=== PATIENT | female | born 1985 | race Caucasian/White ===

== ENCOUNTER → 2016-11-07 | Outpatient (CLI) | payer BC ==
[~2016-11-07] MED LIST: LETR2TAB PO
== END | disposition home or self-care (01) ==
LOC: C.PAPS 16:19
PROVIDERS: ATTEND Obstetrics & Gynecology
DX: Z01.419 Encounter for gynecological examination (general) (routine) without abnormal findings (principal); Z87.42 Personal history of other diseases of the female genital tract

== ENCOUNTER → 2016-12-20 | Outpatient (CLI) | payer BC ==
[2016-12-20 10:01] LABS: PROLACTIN 8.85 ng/mL
== END | disposition home or self-care (01) ==
LOC: C.LAB 08:25
PROVIDERS: ATTEND Obstetrics & Gynecology
DX: Z31.41 Encounter for fertility testing (principal)

== ENCOUNTER → 2016-12-27 | Outpatient (CLI) | payer BC ==
--- NOTE | 2016-12-27 11:32 | DIAGNOSTIC IMAGING REPORT ---
HYSTEROSALPINGOGRAM HISTORY: Infertility. FLUOROSCOPY TIME: 0.6 minutes. TECHNIQUE: The cervix was cannulated by the oxygen equipment preparer-electronics technician and water soluble contrast was instilled into the uterus under fluoroscopic guidance. Multiple spot images were obtained. FINDINGS: The uterine cavity is normal in size, shape, and position. The fallopian tubes are patent and there is free peritoneal spill on the right. There appears to be a small peritubal adhesion at the left fallopian tube without free intraperitoneal spill.. IMPRESSION: Normal uterus and right ovary. There appears to be a small peritubal adhesion at the left fallopian tube without free intraperitoneal spill. Electronically signed by: Benjamin Skelton M.D. 12/27/2016 11:31 AM Dictated Date/Time: 12/27/2016 11:30 AM
--- NOTE | 2016-12-27 11:57 | OPERATIVE REPORT ---
DATE OF OPERATION: 12/27/2016 PROCEDURE NOTE DATE OF PROCEDURE: 12/27/2016. PROCEDURE PERFORMED: Hysterosalpingogram. SURGEON: Dr. Dowd. FINDINGS: Injection of radiopaque dye showed fill of the uterine cavity and bilateral fill and spill. Left fallopian tube deviated towards the pelvic sidewall, possibly consistent with adhesions. PROCEDURE IN DETAIL: In the fluoroscopy suite, the patient was placed in the dorsal lithotomy position. Cervix visualized, cleansed with Betadine and an HSG cannula inserted into the cervical os and fastened to the tenaculum. Radiopaque dye is injected into the uterine cavity with the description as above. The patient tolerated the procedure well. Instrumentation removed. The patient taken out of dorsal lithotomy. I attest to the content of the Intraoperative Record and any orders documented therein. Any exceptio ns are noted below.
== END | disposition home or self-care (01) ==
LOC: C.RAD 10:55
PROVIDERS: ATTEND Obstetrics & Gynecology
DX: Z31.41 Encounter for fertility testing (principal)

== ENCOUNTER 2017-06-21 17:26 | Emergency (ER) | payer BC ==
[~2017-06-21] VITALS: Ht 180.3 cm; Wt 66.8 kg
[2017-06-21 17:28] VITALS: Ht 180.3 cm; Wt 66.8 kg
--- NOTE | 2017-06-21 17:58 | EMERGENCY ROOM VISIT NOTE ---
History First contact with patient: 17:34 Chief Complaint: ABNORMAL DIAGNOSTIC TESTING Stated Complaint: ABN EKG, POSSIBLE SEPTIC INFARCT- [facility] REF History of Present Illness The patient is a 31 year old female who presents to the Emergency Room with complaints of left upper quadrant/left rib pain for the past 2 weeks. She states the pain has been progressively worsening. She states it is not severe, but is a nagging and annoying pain. She rates her discomfort a 3/10. She states that last night, the pain began to radiate down her left arm. She became very anxious regarding this and took her blood pressure, which was elevated. She states that today, she has a cramping sensation in her left arm and aching, "empty" feeling in the left side of her chest. She was seen at [facility] and full she had an abnormal EKG and was sent here for further evaluation. She denies any shortness of breath, changes in bowel movements, nausea or vomiting. She denies any cardiac history or history of blood clots. The patient is currently on hormone therapy for infertility. She states that she is a smoker, but has not smoked for the past 2 days. She denies any recent travel. Review of Systems A complete 10 point review of systems was reviewed with the patient with pertinent positives and negatives as per history of present illness. All else were negative. Social History Smoking Status: Current Some Day Smoker Current/Historical Medications Scheduled Letrozole (Femara), 2.5 MG PO UD Physical Exam Vital Signs Date Time Temp Pulse Resp B/P (MAP) Pulse Ox O2 Delivery O2 Flow Rate FiO2 06/21/17 20:07 36.8 70 18 101/73 97 Room Air 06/21/17 18:52 71 18 112/77 97 06/21/17 17:28 36.6 83 18 130/84 96 Room Air Physical Exam VITALS: Vitals are noted on the nurse's note and reviewed by myself. Vital signs stable. GENERAL: This is a 31-year-old female, anxious appearing, nondiaphoretic, well- developed well-nourished. SKIN: No rashes noted. HEENT: Normocephalic. PERRLA. EOMI. Nares patent. Mucous membranes moist. HEART: Regular rate and rhythm without murmurs gallops or rubs. LUNGS: Clear to auscultation bilaterally without wheezes, rales or rhonchi. No retractions or accessory muscle use. ABDOMEN: Positive bowel sounds x 4. Soft, nontender to palpation. NEURO: Patient was alert and oriented to person place and time. Normal sensation to light and sharp touch. Medical Decision & Procedures ER Provider Diagnostic Interpretation: CHEST ONE VIEW PORTABLE CLINICAL HISTORY: Left sided chest pain. COMPARISON STUDY: Chest CT April 10, 2009. FINDINGS: Lung volumes are normal. There is no pneumothorax or pleural effusion. Pulmonary vascularity is normal. Lungs are clear. Cardiomediastinal silhouette is normal. A nipple shadow projects over the right lower lung. IMPRESSION: No acute cardiopulmonary findings. Laboratory Results 06/21/17 18:15 Red Blood Count 4.57, Mean Corpuscular Volume 89.1, Mean Corpuscular Hemoglobin 30.4, Mean Corpuscular Hemoglobin Concent 34.2, Mean Platelet Volume 9.4, Neutrophils (%) (Auto) 52.8, Lymphocytes (%) (Auto) 40.7, Monocytes (%) (Auto) 5.3, Eosinophils (%) (Auto) 1.0, Basophils (%) (Auto) 0.2, Neutrophils # (Auto) 2.59, Lymphocytes # (Auto) 2.00, Monocytes # (Auto) 0.26, Eosinophils # (Auto) 0.05, Basophils # (Auto) 0.01 06/21/17 18:15 Test 06/21/17 17:55 06/21/17 18:15 06/21/17 18:22 Urine Color DK YELLOW Urine Appearance CLEAR (CLEAR) Urine pH 6.0 (4.5-7.5) Urine Specific [place] 1.029 (1.000-1.030) Urine Protein NEG (NEG) Urine Glucose (UA) NEG (NEG) Urine Ketones NEG (NEG) Urine Occult Blood 1+ (NEG) Urine Nitrite NEG (NEG) Urine Bilirubin NEG (NEG) Urine Urobilinogen NEG (NEG) Urine Leukocyte Esterase NEG (NEG) Urine WBC (Auto) 1-5 /hpf (0-5) Urine RBC (Auto) 10-30 /hpf (0-4) Urine Hyaline Casts (Auto) 5-10 /lpf (0-5) Urine Epithelial Cells (Auto) >30 /lpf (0-5) Urine Bacteria (Auto) NEG (NEG) Urine Test NEG (NEG) White Blood Count 4.91 K/uL (4.8-10.8) Red Blood Count 4.57 M/uL (4.2-5.4) Hemoglobin 13.9 g/dL (12.0-16.0) Hematocrit 40.7 % (37-47) Mean Corpuscular Volume 89.1 fL (80-100) Mean Corpuscular Hemoglobin 30.4 pg (25-34) Mean Corpuscular Hemoglobin Concent 34.2 g/dl (32-36) Platelet Count 200 K/uL (130-400) Mean Platelet Volume 9.4 fL (7.4-10.4) Neutrophils (%) (Auto) 52.8 % Lymphocytes (%) (Auto) 40.7 % Monocytes (%) (Auto) 5.3 % Eosinophils (%) (Auto) 1.0 % Basophils (%) (Auto) 0.2 % Neutrophils # (Auto) 2.59 K/uL (1.4-6.5) Lymphocytes # (Auto) 2.00 K/uL (1.2-3.4) Monocytes # (Auto) 0.26 K/uL (0.11-0.59) Eosinophils # (Auto) 0.05 K/uL (0-0.5) Basophils # (Auto) 0.01 K/uL (0-0.2) RDW Standard Deviation 38.6 fL (36.4-46.3) RDW Coefficient of Variation 12.0 % (11.5-14.5) Immature Granulocyte % (Auto) 0.0 % Immature Granulocyte # (Auto) 0.00 K/uL (0.00-0.02) Anion Gap 6.0 mmol/L (3-11) Est Creatinine Clear Calc Drug Dose 120.0 ml/min Estimated GFR () 130.6 Estimated GFR (Non- 112.7 BUN/Creatinine Ratio 27.0 (10-20) Calcium Level 9.2 mg/dl (8.5-10.1) Total Bilirubin 0.4 mg/dl (0.2-1) Aspartate Amino Transf (AST/SGOT) 9 U/L (15-37) Alanine Aminotransferase (ALT/SGPT) 18 U/L (12-78) Alkaline Phosphatase 50 U/L (45-117) Total Protein 7.4 gm/dl (6.4-8.2) Albumin 4.2 gm/dl (3.4-5.0) Globulin 3.2 gm/dl (2.5-4.0) Albumin/Globulin Ratio 1.3 (0.9-2) Lipase 85 U/L (73-393) Bedside D-Dimer 103 ng/mlFEU (0-450) Bedside Troponin I < 0.030 ng/ml (0-0.045) ECG Rate (beats per minute): 64 Rhythm: normal sinus Findings: no acute ischemic change, no ectopy Comparison ECG Date: no prior available Medical Decision Differential diagnosis includes acute coronary syndrome, pulmonary embolism, pneumothorax, pericarditis, myocarditis, endocarditis, anxiety, musculoskeletal pain, GERD, costochondritis, pneumonia, among others. The patient is a 31-year-old female who presents today complaining of left upper quadrant pain and abnormal EKG per [facility]. EKG here shows a normal sinus rhythm at a rate of 64 bpm. There is no evidence of ischemia. I did review the EKG from [facility], which was read to show a possible septal infarct. On further review, I do not feel there are Q waves present on that EKG either. Labs revealed no leukocytosis, anemia or concerning electrolyte abnormalities. Troponin was not elevated. D-dimer was not elevated. The patient has no abdominal tenderness on exam. She was encouraged to try a PPI at home for what is likely gastritis/GERD. Based on the patient's presentation and work up, I feel the patient is stable for outpatient treatment. The patient was educated to return to the emergency department for any worsening of their current condition or new/concerning symptoms. She will follow up with her PCP. Medication Reconcilliation Current Medication List: was personally reviewed by me Blood Pressure Screening Patient's blood pressure: Normal blood pressure Impression Primary Impression: Left upper quadrant pain Departure Information Dispostion Home / Self-Care Condition GOOD Referrals No Doctor, Assigned (PCP) Patient Instructions [facility] [employer] Additional Instructions You may begin Prilosec or Nexium [id number] for your symptoms. Schedule a follow-up appointment with a primary care provider preferably within 1 week to discuss today's visit. Return to the emergency department with any worsening pain, shortness of breath , vomiting, changes in bowel movements or any other new/concerning symptoms.
--- NOTE | 2017-06-21 18:10 | DIAGNOSTIC IMAGING REPORT ---
CHEST ONE VIEW PORTABLE CLINICAL HISTORY: Left sided chest pain. COMPARISON STUDY: Chest CT April 10, 2009. FINDINGS: Lung volumes are normal. There is no pneumothorax or pleural effusion. Pulmonary vascularity is normal. Lungs are clear. Cardiomediastinal silhouette is normal. A nipple shadow projects over the right lower lung. IMPRESSION: No acute cardiopulmonary findings. Electronically signed by: Luis Arana M.D. 06/21/2017 6:08 PM Dictated Date/Time: 06/21/2017 6:07 PM
[2017-06-21] MEDS ORDERED: LETR2TAB PO (18:11)
[2017-06-21 18:23] LABS: URINE APPEARANCE CLEAR (CLEAR); URINE BILIRUBIN NEG (NEG); URINE COLOR DK YELLOW; URINE EPITHELIAL CELL AUTO >30 /lpf (0-5); URINE NITRITE NEG (NEG); URINE SPECIFIC GRAVITY 1.029 (1.000-1.030); UROBILINOGEN NEG (NEG); ZZUR CULT IF INDIC CLEAN CATCH NO
[2017-06-21 18:33] LABS: MANUAL MICROSCOPIC REQUIRED? NO; REVIEW REQ? NO
[2017-06-21 18:41] LABS: POINT OF CARE TROPONIN I < 0.030 ng/ml (0-0.045)
[2017-06-21 18:44] LABS: BASO % 0.2 %; BASO ABS # 0.01 K/uL (0-0.2); COMPLETE YES; HEMATOCRIT 40.7 % (37-47); LYMPH % 40.7 %; MEAN CELL VOLUME 89.1 fL (80-100); MEAN CORPUSCULAR HEMOGLOBIN 30.4 pg (25-34); MEAN CORPUSCULAR HGB CONC 34.2 g/dl (32-36); MEAN PLATELET VOLUME 9.4 fL (7.4-10.4); MONO % 5.3 %; NEUT % 52.8 %; PLATELET COUNT 200 K/uL (130-400); RED BLOOD COUNT 4.57 M/uL (4.2-5.4); WHITE BLOOD COUNT 4.91 K/uL (4.8-10.8)
[2017-06-21 19:12] LABS: CALCIUM 9.2 mg/dl (8.5-10.1); CREATININE 0.71 mg/dl (0.60-1.20); POTASSIUM 3.3 mmol/L (3.5-5.1)
[2017-06-21 19:15] LABS: ALB/GLOB RATIO 1.3 (0.9-2)
[2017-06-21 20:07] VITALS: BP 101/73; PULSE 70; TEMP 36.8; O2SAT 97
== END 2017-06-21 20:08 | disposition home or self-care (01) ==
LOC: C.EDB 17:27 → C.EDA 20:08
DX: R10.12 Left upper quadrant pain (principal); F17.210 Nicotine dependence, cigarettes, uncomplicated; Z79.899 Other long term (current) drug therapy

== ENCOUNTER → 2017-06-28 | Outpatient (CLI) | payer BC ==
[~2017-06-28] MED LIST changes: +OPTIRAY 320 IV PRN
--- NOTE | 2017-06-28 16:44 | DIAGNOSTIC IMAGING REPORT ---
(CHEST FOR PE) ANGIO WITH CT DOSE: 356.84 mGycm HISTORY: Chest pain dyspnea TECHNIQUE: Multiaxial CT images of the chest were performed following the intravenous administration of contrast to evaluate the pulmonary arteries. Maximal intensity projection images were also obtained. A dose lowering technique was utilized adhering to the principles of ALARA. COMPARISON STUDY: None. FINDINGS: There is a normal caliber thoracic aorta with no evidence for dissection. There is no evidence for pulmonary embolus. No pleural effusions. No pneumothorax. The liver and spleen are unremarkable. No mediastinal or hilar lymphadenopathy. The central airways are patent. The lungs are clear. IMPRESSION: No evidence for pulmonary embolus. The lungs are clear. The above report was generated using voice recognition software. It may contain grammatical, syntax or spelling errors. Electronically signed by: Rivas Osborn M.D. 06/28/2017 4:43 PM Dictated Date/Time: 06/28/2017 4:40 PM
== END | disposition home or self-care (01) ==
LOC: C.CTS 16:17
PROVIDERS: ATTEND Nurse Practitioner Adult Health
DX: R10.812 Left upper quadrant abdominal tenderness (principal); M79.603 Pain in arm, unspecified; R07.9 Chest pain, unspecified

== ENCOUNTER → 2017-06-28 | Outpatient (CLI) | payer BC ==
[~2017-06-28] MED LIST changes: -OPTIRAY 320 IV PRN
[2017-06-28 18:00] LABS: URINE APPEARANCE CLEAR (CLEAR); URINE BILIRUBIN NEG (NEG); URINE COLOR YELLOW; URINE EPITHELIAL CELL AUTO 20-30 /lpf (0-5); URINE NITRITE NEG (NEG); URINE PH 7.5 (4.5-7.5); URINE SPECIFIC GRAVITY 1.022 (1.000-1.030); UROBILINOGEN NEG (NEG)
[2017-06-28 18:04] LABS: MANUAL MICROSCOPIC REQUIRED? NO; REVIEW REQ? NO
== END | disposition home or self-care (01) ==
LOC: C.LABSPEC 17:13
PROVIDERS: ATTEND Nurse Practitioner Adult Health
DX: R31.29 Other microscopic hematuria (principal)

== ENCOUNTER → 2017-08-07 | Outpatient (CLI) | payer BC ==
--- NOTE | 2017-08-07 08:54 | DIAGNOSTIC IMAGING REPORT ---
ABDOMEN COMPLETE (US) CLINICAL HISTORY: ABD TENDERNESS COMPARISON STUDY: No previous studies for comparison. FINDINGS: The liver appears sonographically normal. The gallbladder appears sonographically normal. The pancreas appears sonographically normal. There is no ductal dilatation. Common bile duct measures 4 mm. The spleen measures 11 cm in length. No splenic masses were evident. The right kidney measured 8.9 cm in length. Left kidney measured 9.5 cm in length. No renal masses are visualized. There is no hydronephrosis. There is no evidence of abdominal aortic dilatation. No IVC abnormalities were visualized. IMPRESSION: Normal study Electronically signed by: Bg Kaur M.D. 08/07/2017 8:52 AM Dictated Date/Time: 08/07/2017 8:51 AM
== END | disposition home or self-care (01) ==
LOC: C.ULTRBC 08:01
PROVIDERS: ATTEND Nurse Practitioner Adult Health
DX: Z00.00 Encounter for general adult medical examination without abnormal findings (principal); R10.812 Left upper quadrant abdominal tenderness

== ENCOUNTER → 2017-08-09 | Outpatient (CLI) | payer BC | END | disposition home or self-care (01) | LOC: C.LABSPEC 17:50 → C.PATHSPEC 17:51 | PROVIDERS: ATTEND Urology | DX: R31.29 Other microscopic hematuria (principal) ==

== ENCOUNTER → 2017-11-17 | Day surgery (SDC) | payer BC ==
[2017-09-22 15:19] VITALS: BMI 22.0
[2017-11-08 09:50] VITALS: BMI 22.0
[2017-11-08 10:17] LABS: BASO % 0.3 %; BASO ABS # 0.01 K/uL (0-0.2); EOS ABS # 0.07 K/uL (0-0.5); HEMATOCRIT 43.3 % (37-47); HEMOGLOBIN 14.9 g/dL (12.0-16.0); LYMPH % 44.9 %; LYMPH ABS # 1.57 K/uL (1.2-3.4); MEAN CELL VOLUME 87.5 fL (80-100); MEAN CORPUSCULAR HEMOGLOBIN 30.1 pg (25-34); MEAN CORPUSCULAR HGB CONC 34.4 g/dl (32-36); MEAN PLATELET VOLUME 8.8 fL (7.4-10.4); MONO % 10.6 %; MONO ABS # 0.37 K/uL (0.11-0.59); NEUT % 42.2 %; NEUT ABS # 1.48 K/uL (1.4-6.5); PLATELET COUNT 214 K/uL (130-400); RED CELL DISTRIBUTION WIDTH CV 11.9 % (11.5-14.5); RED CELL DISTRIBUTION WIDTH SD 37.7 fL (36.4-46.3)
--- NOTE | 2017-11-08 10:33 | PAT Medication Instructions ---
Service Date Nov 08, 2017. Current Home Medication List Multivitamin (Multivitamin), 1 TAB PO DAILY Medication Instructions For Your Scheduled Surgery - Take the following medications as scheduled the afternoon before surgery: Multivitamin (Multivitamin), 1 TAB PO DAILY If you have any questions please call us at [phone] or [phone] or [phone]
[2017-11-08 10:57] LABS: CALCIUM 9.4 mg/dl (8.5-10.1); CREATININE 0.91 mg/dl (0.60-1.20); POTASSIUM 4.2 mmol/L (3.5-5.1)
[~2017-11-17] VITALS: Ht 180.3 cm; Wt 74.0 kg
[~2017-11-17] MED LIST changes: +ATROPINE SULFATE 0.1 MG/ML 5ML SYR IV PRN; +BUPIVACAINE 0.5 % 5 MG/1 ML MPF 30ML VIAL ONE; +CEFTRIAXONE SOD 1 GM VIAL ONE; +DEXAMETHASONE SOD INJ 4 MG/ML VIAL ONE; +DOXY100C41 PO; +EpHEDrine SULFATE INJ 50 MG/ML AMP IV PRN; +EpHEDrine SULFATE INJ 50 MG/ML AMP ONE; +FENTANYL CITRATE INJ 50 MCG/1 ML 2 ML VIAL ONE; +GLYCOPYRROLATE INJ 0.2 MG/ML VIAL ONE; +HYDROmorphone INJ 0.5 MG/0.5 ML SYR IV PRN; +HYDROmorphone INJ 2 MG/ML SYR/VIAL ONE; +IBUPROFEN 600 MG TAB PO PRN; +KETOROLAC TROMETHAMINE 30 MG/ML VIAL IV. PRN; +KETOROLAC TROMETHAMINE 30 MG/ML VIAL ONE; +LACTATED RINGER'S 1000ML 1,000 ML IV SCH; -LETR2TAB PO; +LIDOCAINE HCL 2% 2 ML VIAL (20MG/ML) ONE; +MIDAZOLAM HCL 1 MG/ML 2ML VIAL ONE; +MTR600X PO; +MULT-506 PO; +NEOSTIGMINE METHYLSULFATE 5 MG/5 ML SYR ONE; +ONDANSETRON INJ 2 MG/ML 2 ML VIAL IV PRN; +ONDANSETRON INJ 2 MG/ML 2 ML VIAL ONE; +OXYC-57 PO; +OXYCODONE/ACETAMINOPHEN 5-325 TAB PO PRN; +PHENYLEPHRINE HCL INJ 10 MG/ML VIAL ONE; +PROMETHAZINE HCL INJ 25 MG in SODIUM CHLORIDE 0.9% 50ML 50 ML IV PRN; +PROPOFOL IV EMULSION 10 MG/ML 20 ML VIAL IV ONE; +ROCURONIUM BROMIDE 10 MG/ML 5 ML VIAL IV ONE; +SODIUM CHLORIDE 0.9% 1000ML 1,000 ML IV SCH; +SUCCINYLCHOLINE CHLORIDE 20 MG/ML 10 ML VIAL IV ONE
[2017-11-17 07:51] VITALS: BP 121/83; PULSE 73; TEMP 36.7; O2SAT 99; Ht 180.3 cm; Wt 74.0 kg
[2017-11-17] MEDS: LACTATED RINGER'S 1000ML 1,000 ML IV SCH ×2 (08:24→11:53)
--- NOTE | 2017-11-17 09:26 | History & Physical Bridge Note ---
H&P Re-Evaluation Bridge Note: I have examined the patient, reviewed the History & Physical and in the interval since the performance of the History & Physical I have noted the following changes of clinical significance: No changes noted
--- NOTE | 2017-11-17 11:21 | [facility] Post Operative Brief Note ---
Immediate Operative Summary Operative Date Nov 17, 2017. Pre-Operative Diagnosis Dysmenorrhea Post-Operative Diagnosis dysmenorrhea, endometriosis, Óscar-Bob Ella syndrome Procedure(s) Performed Diagnostic Laparoscopy with lysis of adhesions Surgeon Dr. Echevarria Civil Manager Surgeon(s) none Estimated Blood Loss 5 cc Findings Consistent with Post-Op Diagnosis Specimens none, as per surgeon Drains None Anesthesia Type General Complication(s) none Disposition Accompanied Pt To Recover: no Disposition: Recovery Room / PACU
--- NOTE | 2017-11-17 11:22 | Discharge Instructions ---
Discharge Instructions Date of Service Nov 17, 2017. Admission Reason for Admission: Dysmenorrhea Discharge Discharge Diagnosis / Problem: pelvic pain Discharge Goals Goal(s): Routine recovery after surgery Activity Recommendations Activity Limitations: per Instructions/Follow-up section . Instructions / Follow-Up Instructions / Follow-Up ACTIVITY RECOMMENDATIONS: * Rest the first 2-3 days. You should be back to your normal activity levels by day 3. * No heavy lifting for 2 weeks. * No intercourse, tampons or douching for 1-2 weeks. * You may shower the next day. * Do not drive anytime that you are taking narcotic pain medicines. RETURN TO SCHOOL/WORK: * May return to school or work after 2-3 days. DIET: Nausea may occur in the immediate post-operative period. If so, take clear liquids such as tea, bouillon, apple juice until all nausea has subsided, then resume usual diet. MEDICATIONS: Resume previous medications unless instructed otherwise by your surgeon. Ibuprofen 200mg 2-3 tablets every 4-6 hours as needed -- OR -- Aleve 2 tablets every 8-12 hours as needed for post-operative discomfort Medications are over the counter. Tylenol may be used if above medications are contraindicated or not preferred. Medication should be taken with food or milk. Do not take on an empty stomach. SPECIAL CARE INSTRUCTIONS: * Check temperature twice daily for one week. report any elevation over 101 degrees. * You may experience some vagina spotting and/or bleeding. This is normal for 1 -2 weeks and should not be heavier than a normal period. If it is unusual in amount, call your physician. * Post-operative discomfort may consist of a sore throat, a "bloated" feeling and pain in the shoulders. these are normal symptoms, which usually only last for 2-3 days. * Remove band-aids tomorrow and shower. There is no need to replace band-aids unless there is drainage or discomfort. FOLLOW UP VISIT: Call your doctor's office for a post-operative 2 week visit if not already scheduled. Current Hospital Diet Patient's current hospital diet: Discharge Diet Recommended Diet: Regular Diet Procedures Procedures Performed: Diagnostic Laparoscopy with lysis of adhesions Pending Studies Studies pending at discharge: no Medical Emergencies . Who to Call and When: Medical Emergencies: If at any time you feel your situation is an emergency, please call 911 immediately. . Non-Emergent Contact Non-Emergency issues call your: Heavy Equipment Operator Apprentice . . "Provider Documentation" section prepared by Luigi Echevarria. .
[2017-11-17] MEDS: FENTANYL CITRATE INJ 50 MCG/1 ML 2 ML VIAL IV PRN ×4 (11:47→12:03)
--- NOTE | 2017-11-17 12:13 | OPERATIVE REPORT ---
DATE OF OPERATION: 11/17/2017 PREOPERATIVE DIAGNOSES: Dysmenorrhea, pelvic pain. POSTOPERATIVE DIAGNOSES: [id number]-Pmpowh syndrome, adhesions. PROCEDURE: Laparoscopy with lysis of adhesions. SURGEON: Luigi Echevarria MD INTENSIVE CARE UNIT NURSE: None. ESTIMATED BLOOD LOSS: 5 mL. FINDINGS: Consistent with postoperative diagnoses. SPECIMENS: None. DRAINS: None. ANESTHETIC: General. COMPLICATIONS: None. DISPOSITION: Recovery room. DESCRIPTION OF PROCEDURE: Vince was given general anesthetic, prepped and draped in dorsal lithotomy position in [facility]. The bladder was drained with a Butler catheter. A cervical acorn device attached the cervix, attached to an Allis clamp. Gloves were changed and a subumbilical incision was made with a scalpel cutting down through subcutaneous fat to the fascia in the midline, splitting the rectus muscles and entering the peritoneal cavity without difficulty. A blunt-tipped Charbel trocar was placed, balloon inflated to stabilize the port, CO2 gas used to insufflate the abdomen. FINDINGS: Upper abdomen revealed no sign of visceral organ injury. There were adhesions up over the liver, highly consistent with Amyh-Tswb-Tkwflt syndrome and as well there were adhesions on the right side of the fallopian tube to the omentum as well as flimsy adhesions to the round ligament on the right side. Pictures were taken for documentation. After obtaining deep Trendelenburg position, we placed two 8 mm ports on the left side of the patient under direct visualization. Using a nontraumatic grasper and the Harmonic scalpel, I was able to lyse the adhesions across the round ligament and around the right fallopian tube. We did not damage the right fallopian tube, although it should be noted the diameter of the right fallopian tube was somewhat enlarged. Possibly prior infection. We then also paid attention to the flimsy adhesions up above the liver. These were carefully lysed using the Harmonic scalpel, we were nowhere near contacting the liver and once the adhesions were lysed, pictures were taken for documentation. We did do a low carbon dioxide test and hemostasis was excellent. After visualization of this, we did give the patient ceftriaxone 250 mg IV and we will give her doxycycline as an outpatient as we will treat her for the potential of PID. Instruments were removed under direct visualization. The gas was allowed to escape. Incisions were injected with 0.5% Marcaine. The fascia closed with 0 Vicryl, the subcutaneous fat closed as well with 0 Vicryl, 4-0 subcuticular Monocryl closures and Dermabond applied. The Butler catheter was removed, urine was clear, and instruments removed from the cervix and vagina. Sponge and instrument counts were correct. The patient sent to recovery room in stable condition. I attest to the content of the Intraoperative Record and any orders documented therein. Any exception s are noted below.
[2017-11-17 12:27] VITALS: BP 101/61; PULSE 60; TEMP 36.9; O2SAT 98
[2017-11-17 13:00] VITALS: BP 104/67; PULSE 72; O2SAT 98
--- NOTE | 2017-11-17 13:32 | Anesthesiology Progress Note ---
Anesthesia Post Op Note Date & Time Nov 17, 2017 at 13:32 Vital Signs Pain Intensity: 5 Vital Signs Past 12 Hours Date Time Temp Pulse Resp B/P (MAP) Pulse Ox O2 Delivery O2 Flow Rate FiO2 11/17/17 13:00 72 18 104/67 98 Room Air 11/17/17 12:27 36.9 60 18 101/61 98 Room Air 11/17/17 12:20 36.4 55 16 100/57 97 Room Air 11/17/17 12:10 55 16 100/60 96 Room Air 11/17/17 12:00 58 16 105/64 98 Room Air 11/17/17 11:50 53 16 107/69 100 Oxymask 10 11/17/17 11:40 54 16 114/73 100 Oxymask 10 11/17/17 11:31 36.2 84 16 119/64 100 Oxymask 10 11/17/17 07:51 36.7 73 18 121/83 (96) 99 Room Air Notes Mental Status: alert / awake / arousable, participated in evaluation Pt Amnestic to Procedure: Yes Nausea / Vomiting: adequately controlled Pain: adequately controlled Airway Patency, RR, SpO2: stable & adequate BP & HR: stable & adequate Hydration State: stable & adequate Anesthetic Complications: no major complications apparent
== END | disposition home or self-care (01) ==
LOC: C.ACU 07:21
PROVIDERS: ATTEND Obstetrics & Gynecology
DX: N94.6 Dysmenorrhea, unspecified (principal); N73.6 Female pelvic peritoneal adhesions (postinfective); Z84.2 Family history of other diseases of the genitourinary system; Z82.49 Family history of ischemic heart disease and other diseases of the circulatory system; F17.200 Nicotine dependence, unspecified, uncomplicated; Z87.891 Personal history of nicotine dependence; Z78.9 Other specified health status